=== PATIENT | female | born 1975 | race Caucasian/White ===

== ENCOUNTER 2020-07-03 15:48 | Outpatient (CLI) | payer OTHER, SELFPAY ==
--- NOTE | ~2020-07-03 | MM_ITS ---
EXAMINATION: MM screening donald BI w linus HISTORY: Screening TECHNIQUE: Craniocaudal and mediolateral oblique 3-D tomosynthesis images were obtained and synthetic 2-D images were generated. CAD analysis was submitted and interpreted. COMPARISON: Comparison to multiple prior studies sequentially, with oldest reviewed study dated 02/28. BREAST PARENCHYMAL COMPOSITION: There are scattered areas of fibroglandular density. FINDINGS: There is no evidence of suspicious mass, calcification, or architectural distortion to sugg est malignancy in either breast. There has been no suspicious interval change. IMPRESSION: 1. No mammographic evidence of malignancy. 2. Recommend routine screening mammography in one year. BI-RADS Category 1: Negative Reviewed, dictated and finalized at location A.
== END 2020-07-03 15:49 | disposition home or self-care (01) ==
PROVIDERS: PCP Family Medicine; Visit Provider Obstetrics & Gynecology
DX: Z12.31 Encounter for screening mammogram for malignant neoplasm of breast (principal)
CPT/HCPCS: 77063; 77067

== ENCOUNTER 2022-04-10 15:31 | Outpatient (CLI) | payer OTHER, SELFPAY ==
--- NOTE | ~2022-04-10 | MM_ITS ---
EXAMINATION: MM screening donald BI w linus HISTORY: Screening TECHNIQUE: Craniocaudal and mediolateral oblique 3-D tomosynthesis images were obtained and synthetic 2-D images were generated. CAD analysis was submitted and interpreted. COMPARISON: Comparison to multiple prior studies sequentially, with oldest reviewed study dated 02/28. BREAST PARENCHYMAL COMPOSITION: There are scattered areas of fibroglandular density. FINDINGS: There is a new spiculated asymmetry in the outer aspect of the right breast on CC view. The left breast is stable without evidence for malignancy. IMPRESSION: 1. New spiculated asymmetry laterally on CC view. 2. Additional mammographic views and possible breast ultrasound are recommended. BI-RADS Category 0: Incomplete: Needs additional imaging evaluation. Reviewed, dictated and finalized at location A. IMPRESSION: 1. New spiculated asymmetry laterally on CC view. 2. Additional mammographic views and possible breast ultrasound are recommended . BI-RADS Category 0: Incomplete: Needs additional imaging evaluation.
== END 2022-04-10 15:32 | disposition home or self-care (01) ==
PROVIDERS: PCP Family Medicine; Visit Provider Obstetrics & Gynecology
DX: Z12.31 Encounter for screening mammogram for malignant neoplasm of breast (principal); R92.8 Other abnormal and inconclusive findings on diagnostic imaging of breast
CPT/HCPCS: 77063; 77067

== ENCOUNTER 2022-04-24 13:10 | Outpatient (CLI) | payer OTHER, SELFPAY ==
--- NOTE | ~2022-04-24 | MMUS_ITS ---
EXAMINATION: MM diagnostic donald RT w linus, US breast RT limited HISTORY: Follow-up spiculated asymmetry TECHNIQUE: Additional 3-D tomosynthesis images of the right breast were performed and synthetic 2-D i mages were generated. CAD analysis was submitted and interpreted. High resolution Limited right breas t ultrasound was performed. COMPARISON: 04/10/2022 BREAST PARENCHYMAL COMPOSITION: Breast composed of scattered areas of fibroglandular density FINDINGS: MAMMOGRAPHIC FINDINGS: There is a persistent spiculated mass in the upper outer quadrant of the right breast, middle third. ULTRASOUND: Limited right breast ultrasound: No discrete solid or cystic mass is identified. IMPRESSION: 1. Spiculated mass without sonographic correlate, upper outer quadrant of the right breast. 2. Stereotactic right breast biopsy recommended. BI-RADS category 4, suspicious findings. Reviewed, dictated and finalized at location A. IMPRESSION: 1. Spiculated mass without sonographic correlate, upper outer quadrant of the r ight breast. 2. Stereotactic right breast biopsy recommended. BI-RADS category 4, suspicious findings.
== END 2022-04-24 13:11 | disposition home or self-care (01) ==
PROVIDERS: PCP Family Medicine; Visit Provider Obstetrics & Gynecology
DX: R92.8 Other abnormal and inconclusive findings on diagnostic imaging of breast (principal)
CPT/HCPCS: 76642; 77061; 77065; G0279

== ENCOUNTER 2024-04-18 09:34 | Outpatient (CLI) | payer OTHER, SELFPAY ==
--- NOTE | ~2024-04-18 | US_ITS ---
US pelvic complete w TV Ordering provider: Anthony Monroe MD History: . N94.9 - Unspecified condition associated with female segun... . Comparison: None. Technique: Transabdominal and endovaginal ultrasound of the pelvis (Doppler ultrasound interrogation techniques used as needed for this exam.) FINDINGS: CERVIX: Normal. UTERUS: Measures 5.5x 3.1x 4.6 cm in length which is within normal limits and is anteverted. Hyperec hoic area in the fundus measuring 1.5 x 1.5 x 0.9 CNM.. Retroverted uterus. ENDOMETRIUM: Normal in thickness measuring 1.5 mm. Small calcification seen in the endometrium. No en dometrial masses, cysts or fluid. CUL DE SAC: No free fluid. RIGHT OVARY: Normal in size measuring 2.5x 1x 1.3 cm. Normal echotexture. Doppler vascular flow prese nt. LEFT OVARY: Not visualized. ADNEXA: Normal. No mass. IMPRESSION: Hyperechoic area in the fundus most likely fibroid. Focus of calcification in the endometrium. Otherw ise, normal pelvic ultrasound. Reviewed, dictated and finalized at location A. IMPRESSION: Hyperechoic area in the fundus most likely fibroid. Focus of calcification in t he endometrium. Otherwise, normal pelvic ultrasound.
== END 2024-04-18 09:35 | disposition home or self-care (01) ==
LOC: ANHIMG 09:35
PROVIDERS: PCP Family Medicine; Visit Provider Obstetrics & Gynecology
DX: N94.9 Unspecified condition associated with female genital organs and menstrual cycle (principal)
CPT/HCPCS: 76830; 76856